=== PATIENT | female | born 1960 | race Hispanic/Latino ===

== ENCOUNTER 2020-09-24 08:40 | Emergency (ER) | payer OTHER ==
[2020-09-24] MEDS ORDERED: KETOROLAC 30 MG/1 ML INJ ONE (09:15)
[2020-09-24] MEDS ORDERED: KETOROLAC 30 MG/1 ML INJ IM ONE (09:15)
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
[2020-09-24 12:35] VITALS: BP 122/71
== END 2020-09-24 12:00 | disposition home or self-care (01) ==
LOC: ED 08:40
DX: S16.1XXA Strain of muscle, fascia and tendon at neck level, initial encounter (principal); S83.90XA Sprain of unspecified site of unspecified knee, initial encounter; S39.013A Strain of muscle, fascia and tendon of pelvis, initial encounter; S00.03XA Contusion of scalp, initial encounter; J45.909 Unspecified asthma, uncomplicated; Z90.710 Acquired absence of both cervix and uterus; Z87.891 Personal history of nicotine dependence; V49.49XA Driver injured in collision with other motor vehicles in traffic accident, initial encounter; Y93.89 Activity, other specified; Y92.410 Unspecified street and highway as the place of occurrence of the external cause; Y99.8 Other external cause status
CPT/HCPCS: 70450; 72125; 72170; 73552; 96372; 99284; J1885